=== PATIENT | male | born 1975 | race African-American/Black ===

== ENCOUNTER 2017-11-18 17:46 | Emergency (ER) | payer SELFPAY ==
[2017-11-18] MEDS ORDERED: Fentanyl 100 MCG/2 ML VIAL ONE (18:13)
[2017-11-18] MEDS ORDERED: Ketorolac Tromethamine 30 MG/ML VIAL ONE (18:13)
--- NOTE | 2017-11-18 19:25 | ULT ---
TESTICULAR/SCROTAL ULTRASOUND: 11/18/17 COMPARISON: None. HISTORY: Sudden onset of testicular and pelvic pain. TECHNIQUE: Multiplanar benitez scale and color doppler images were obtained in a bilateral testicular/scrotal ultra sound. Spectral analysis of the doppler waveforms in the testicles were performed. FINDINGS: The testicles are normal in echogenicity and demonstrate symmetric internal flow. No focal lesions ar e seen in either testicle. There is no evidence of testicular torsion. No hydrocele is seen. There are prominent vessels in both sides of the scrotum without evidence of en largement with Valsalva. The epididymi are unremarkable. IMPRESSION: No significant testicular abnormality. POS: [facility]
[2017-11-18 20:47] LABS: Bilirubin Negative (Negative); Blood, Urine Negative (Negative); Clarity CLEAR (Clear); Glucose, Urine (Dipstick) Negative (Negative); Leukocyte Negative (Negative); Nitrite Negative (Negative); Protein, Urine (Dipstick) 30 mg/dL (Neg-Trace); Specific Gravity, Urine 1.022 (1.002-1.036); pH, Urine 6.5 (5.0-9.0)
[2017-11-18 20:49] LABS: Bacteria/HPF None Seen HPF (None Seen); Hyaline Casts/LPF 4-6 HYALINE CAST LPF (0-3 Hyaline); Pathc Cast-AUWi Flag 0.87 (0-2.49); WBC/HPF 0-3 HPF (0-3)
[2017-11-18] MEDS ORDERED: Acetaminophen 325 MG TAB ONE (20:58)
[2017-11-19 20:56] LABS: Chlamydia by PCR Not Detected (NotDetected); GC by PCR Not Detected (NotDetected)
== END 2017-11-18 21:11 | disposition home or self-care (01) ==
LOC: ERS 17:46
DX: N45.2 Orchitis (principal); F17.200 Nicotine dependence, unspecified, uncomplicated
CPT/HCPCS: 76870; 81001; 87491; 87591; 93976; 96361; 96374; 96375; J1885; J3010